=== PATIENT | male | born 1990 | race African-American/Black ===

== ENCOUNTER 2021-06-29 10:35 | Emergency (ER) | payer OTHER, SELFPAY ==
[2021-06-29 10:46] VITALS: BP 148/87; PULSE 95; RESP 18; TEMP 37.1; O2SAT 98; BMI 37.1
[2021-06-29 11:53] LABS: Influenza A PCR NEGATIVE (Negative); Influenza B PCR NEGATIVE (Negative); Resp Syncy Virus RNA Qual PCR NEGATIVE (Negative); SARS COV2 PCR INHOUSE POSITIVE (Negative)
--- NOTE | 2021-06-29 12:05 | ED_ITS ---
HPI - General Adult General Chief complaint: General Medical Stated complaint: fever Time Seen by Provider: 06/29/21 11:03 Source: patient Mode of arrival: ambulatory Limitations: no limitations History of Present Illness HPI narrative: 31-year-old male healthy presents to ED for URI symptoms. Patient not vaccinated. Patient denies any chest pain or shortness of breath. Related Data Allergies Allergy/AdvReac Type Severity Reaction Status Date / Time No Known Allergies Allergy Verified 06/29/21 11:03 Review of Systems Review of Systems: Yes all other systems are reviewed and are negative Constitutional: Constitutional: Reports as per HPI, Reports no additional constitutional complaints, Reports body ache(s), Reports chills, Reports fever(s) and Reports headache(s) Eyes: Eyes: Reports as per HPI and Reports no additional eye complaints ENT: Reports system reviewed and no additional complaints, except as documented, Reports as per HPI and Reports headache(s) Cardiovascular: Cardiovascular: Reports as per HPI and Reports no additional cardiovascular complaints Respiratory: Respiratory: Reports as per HPI and Reports no additional respiratory complaints Gastrointestinal: Gastrointestinal: Reports as per HPI and Reports no additional gastrointestinal complaints Genitourinary: Genitourinary: Reports no additional male genitourinary complaints and Reports as per HPI Musculoskeletal: Musculoskeletal: Reports no additional musculoskeletal complaints and Reports as per HPI Neurologic: Reports system reviewed and no additional complaints, except as documented, Reports as per HPI and Reports headache(s) Psychiatric: Psychiatric: Reports no additional psychiatric complaints and Reports as per HPI PMF Past Medical History Medical History (Updated 06/29/21 @ 12:13 by LANA Boucher) No known health problems Social History Social History Advance Directives: No Advance Directives Information Provided: No Physical Exam Vital Signs: Vital Signs: Last Vital Signs Temp 98.7 F 06/29/21 10:46 Pulse 95 06/29/21 10:46 Resp 18 06/29/21 10:46 BP 148/87 H 06/29/21 10:46 Pulse Ox 98 06/29/21 10:46 BMI result Body Mass Index 37.1 Const: General: cooperative, healthy appearing, comfortable, no acute distress, well developed, alert, awake and Physically active Orientation/consciousness: patient oriented x3 HENMT: Head: Yes normal to inspection, Yes No palpable skull fracture present, Yes normocephalic, Yes atraumatic and No abrasion Eyes: General: appearance normal, both eyes and all related structures Neck: Neck: Yes normal visual inspection, Yes full ROM, Yes no lymphadenopathy, Yes no meningeal signs, Yes trachea midline, Yes supple, No anterior neck swelling and No tender Chest: Chest palpation & inspection: normal inspection of the chest and normal palpation of entire chest wall Resp: Effort & Inspection: normal respiratory effort and able to speak in complete sentences Auscultation: clear to auscultation bilaterally Cardio: Jugular venous distension: no JVD Heart sounds: S1 normal heart sound present and S2 normal heart sound present GI: Inspection: Yes normal to inspection and No abdominal wall ecchymosis Palpation (GI): Soft to palpation, not firm, nontender, no guarding and not rigid : General: No CVA tenderness and Yes no CVA tenderness Back/Spine/Pelvis: Back: no CVA tenderness, No CVA tenderness and No back tenderness Skin: General skin exam: no rashes or lesions noted and elasticity normal Neuro: General: patient oriented x3, gait normal, no meningeal signs and CN's II-XI intact bilaterally Cranial nerves: Yes CN's II-XII intact bilaterally Extrem: General: Yes normal to inspection and Yes full ROM Psych: Appearance: grossly normal, well kempt and not disheveled Course Course Course Narrative: SARs/RSV/COVID swab ordered. Reevaluation(s) Reevaluation #1: Patient came back positive for COVID. Patient educated on self quarantine. Patient informed to return to the ED any chest pain, shortness of breath, weakness Time: 12:11 Medical Decision Making [facility] Narrative Medical decision making narrative: SARs Lab Data Labs: Lab Results 06/29/21 Range/Units 11:02 Influenza Type A (PCR) NEGATIVE (Negative) Influenza Type B (PCR) NEGATIVE (Negative) RSV RNA Qual (PCR) NEGATIVE (Negative) SARS-CoV-2 RNA (RT-PCR) POSITIVE A (Negative) Discharge Plan Discharge Clinical Impression: COVID Patient Disposition: Home, Self-Care Instructions: COVID-19 (Coronavirus Disease 2019) (ED) Additional Instructions: You came back positive for the COVID-19 virus. Recommend 14 days self- isolation. Return To the ED for any chest pain, shortness of breath, weakness, dizziness, or any other concerning symptoms. Please follow-up with primary care provider. Stand Alone Forms: Work/School Release Interventions: ED Discharge Assessment Last Done: 06/29/21 12:17 Discharge Date/Time: 06/29/21 12:22 Print Language: Mohawk
== END 2021-06-29 12:22 | disposition home or self-care (01) ==
PROVIDERS: Emergency Provider Emergency Medicine
DX: U07.1 COVID-19 (principal)
CPT/HCPCS: 0241U; 36415; 99283

== ENCOUNTER 2021-08-28 18:44 | Emergency (ER) | payer OTHER, SELFPAY ==
--- NOTE | ~2021-08-28 | CT_ITS ---
EXAMINATION: CT ABDOMEN AND PELVIS WITH CONTRAST CLINICAL INFORMATION: Abdominal pain COMPARISON: None TECHNIQUE: Multidetector volumetric images were obtained from the superior aspect of the liver through the pubic symphysis following administration 85 mL of Omnipaque 350 intravenous contrast. Sagittal and coronal reformatted images were obtained on the technologist's workstation. Oral contrast: No This CT examination was performed using dose optimization techniques as appropriate, variously including the following: *Automated exposure control *Adjustment of mA and/or kV according to patient size (this includes techniques or standardized protocols for targeted exams where dose is matched to indication/reason for exam; i.e. extremities or head) *Use of iterative reconstruction technique DLP: 777 mGy-cm FINDINGS: LUNG BASES: The visualized lung bases are unremarkable. LIVER, GALLBLADDER, AND BILIARY TREE: The liver is normal in size, shape, and attenuation. Coarse calcifications within the right lobe of liver, likely granulomata. No focal hepatic lesion or biliary ductal dilatation is present. Gallbladder unremarkable. PANCREAS: Unremarkable. SPLEEN: Unremarkable. ADRENAL GLANDS: Unremarkable. KIDNEYS AND URETERS: The kidneys are normal in size, shape, and attenuation. No hydronephrosis, hydroureter, or calculi seen. No perinephric stranding. BLADDER: Unremarkable. GASTROINTESTINAL TRACT: No bowel related abnormalities. Appendectomy. ABDOMINAL WALL: No significant hernia is appreciated. LYMPH NODES: Normal. VASCULAR: Unremarkable. PELVIC VISCERA: Unremarkable. OSSEOUS STRUCTURES: Unremarkable. CT/CT abdomen pelvis w con IMPRESSION: No acute findings within the abdomen or pelvis to explain the patient's symptomatology. Appendectomy. Fleischner guidelines were followed.
[2021-08-28 19:04] VITALS: BP 125/64; PULSE 108; RESP 18; TEMP 37.4; O2SAT 98; BMI 37.1
[2021-08-28 22:08] LABS: MANUAL DIFF FLAG NO
[2021-08-28 22:10] LABS: Appearance Urine CLEAR; Color Urine YELLOW; Glucose Urine UA NEG (NEG); Leukocyte Esterase Urine NEG (NEG); Nitrite Urine NEG (NEG); Specific Gravity - Urine >= 1.030 (1.005-1.025); Urine Blood NEG (NEG); Urine Ketones NEG (NEG); Urine Protein NEG (NEG-TRACE)
[2021-08-28 22:13] LABS: Basophils Percent Auto 0.3 % (0-2); Eosinophils Percent Auto 0.2 % (0-4); Hematocrit 43.8 % (42.0-52.0); Hemoglobin 14.9 g/dl (14.0-18.0); Imm Gran Abs Auto 0.03 X10*3/uL (0.00-0.03); Imm Gran Pct Auto 0.2 % (0.0-0.4); Lymphocytes Percent Auto 7.4 % (20-40); Mean Corpuscular Volume 88.1 fL (80.0-98.0); Mean Platelet Volume 9.7 fL (9.4-12.4); Monocytes Absolute Auto 0.8 X10*3/uL (0.1-1.2); Monocytes Percent Auto 6.5 % (2-11); Neutrophils Absolute Auto 11.1 x10*3/uL (2.0-8.3); Neutrophils Percent Auto 85.4 % (45-73); Platelet Count 355 X10*3/uL (160-400); Red Blood Count 4.97 X10*6/uL (4.60-5.80); Red Cell Distribution Width 13.2 % (11.0-16.0)
[2021-08-28 22:23] LABS: Anion Gap 11 (12-20); Blood Urea Nitrogen 13 mg/dL (9-16); Calcium 9.3 mg/dL (8.4-10.2); Carbon Dioxide 27 mmol/L (22-29); Chloride 103 mmol/L (96-108); Creatinine Clr Calc Pharmacy 141.7; Estimated Glomerular Filt Rate > 60; Glucose Random 93 mg/dL (60-115); Potassium 4.2 mmol/L (3.3-5.1); Sodium 137 mmol/L (135-145)
[2021-08-28 22:25] LABS: COVID-19 Test Negative (Negative)
[2021-08-28 23:07] VITALS: BP 108/64; PULSE 97; RESP 16; TEMP 37.6; O2SAT 98
--- NOTE | 2021-08-28 23:50 | ED.ABDPAIN ---
HPI - Abdominal Pain General Chief Complaint: Abdominal Pain Stated Complaint: abd pain Source: patient Mode of arrival: ambulatory Limitations: no limitations History of Present Illness HPI narrative: 31-year-old male presents with 1 day of abdominal pain nausea and diarrhea. States that he was able to eat and drink without difficulty yesterday, but today was unable to eat because of abdominal pain and nausea. MD elicited complaint: abdominal pain Onset (ago): day(s) (1) Pain Consistency: constant Location: periumbilical and RLQ Severity: moderate Pain scale (0-10): 7 Quality: aching Migration to: no migration Exacerbating factors: eating, vomiting and movement Relieving factors: nothing Associated symptoms: nausea, vomiting, diarrhea and chills Related Data Allergies Allergy/AdvReac Type Severity Reaction Status Date / Time No Known Allergies Allergy Verified 06/29/21 11:03 Review of Systems Review of Systems Constitutional: No Weight loss, No Fever, positive Chills, No Night Sweats, No Fatigue, No Malaise ENT/Mouth: No Hearing loss, No Ear Pain, No Nasal Congestion, No Sinus Pain, No Hoarseness, No sore throat, No Rhinorrhea, No Swallowing Difficulty Eyes: No Eye Pain, No Swelling, No Redness, No Foreign Body, No Discharge, No Vision Changes Cardiovascular: No Chest Pain, No SOB, No Dyspnea on Exertion, No Orthopnea, No Edema, No Palpitations Respiratory: No Cough, No Sputum, No Wheezing, No Smoke Exposure, No Dyspnea Gastrointestinal: Positive Nausea, Positive Vomiting, positive Diarrhea, positive abdominal Pain, No Hematochezia, No Melena Genitourinary: no irregular bleeding, No Dysuria, No Urinary Frequency, No Hematuria, No Urinary Incontinence, No Urgency, No Flank Pain, No Urinary Flow Changes, No Hesitancy Musculoskeletal: No joint pain, No Myalgias, No Joint Swelling Skin: No Skin Lesions, No rash Neuro: No Weakness, No Numbness, No Paresthesias, No Loss of Consciousness, No Dizziness, No Headache Psych: No Anxiety/Panic, No Depression, No SI/HI/AH/VH, No Social Issues Heme/Lymph: No Bruising, No Bleeding,No Lymphadenopathy Endocrine: No Polyuria, No Polydipsia, No Temperature Intolerance Yes all other systems are reviewed and are negative PMFSH Past Medical History Attestation statement: The following information was validated with the patient. Source: old records reviewed Medical History No known health problems Social History Social History Advance Directives: No Physical Exam ED Vital Signs: Vital Signs - 24 hr 08/28/21 19:04 08/28/21 23:07 08/29/21 01:08 Temperature 99.4 F 99.6 F 97.9 F Pulse Rate 108 H 97 96 Respiratory Rate 18 16 16 Blood Pressure 125/64 108/64 117/61 Pulse Oximetry 98 98 98 BMI result Body Mass Index 37.1 Appearance: Alert. Oriented X3. No acute distress. Eyes: Pupils equal, round and reactive to light. EOMI. Sclera nonicteric. ENT: Pharynx normal. Moist mucous membranes. Neck: Normal inspection. Neck supple. CVS: Normal heart rate and rhythm. Pulses normal. Respiratory: No respiratory distress. Breath sounds normal. Abdomen: Soft and right flank right lower quadrant and right suprapubic pain. No rigidity, distention rebound. Skin: Skin warm and dry. Normal skin color. Normal skin turgor. Extremities: No lower extremity edema. Gait well-balanced and well coordinated. Moves all extremities against resistance. Neuro: No motor deficit. No sensory deficit. Cranial nerves 2-12 intact. Course Course Course Narrative: 31-year-old male presents with almost 2 days abdominal pain with nausea vomiting and diarrhea. Patient is status post appendectomy, has diffuse tenderness of the right flank right lower quadrant and right suprapubic on palpation. Negative Correa's, McBurney's, no rigidity or distention noted. Will order CT scan of abdomen and pelvis as patient does have an elevated white count 13, could also be viral syndrome. COVID-19 test is negative. Chemistries are within normal limits. Patient afebrile, vital signs stable and within normal limits. Nontoxic,. 01:45 CT scan of abdomen and pelvis with contrast negative for acute findings requiring emergent intervention. Plan of care is to discharge home measures including Tylenol, Motrin, and for patient to follow-up with primary care provider if symptoms worsen. Patient does verbalize understanding of and agrees to plan of care discharge home. Verbalized understanding of signs and symptoms requiring need for emergent intervention. MDM - Abdominal Pain MDM Narrative Medical decision making narrative: Viral syndrome Differential Diagnosis Differential diagnosis: Likely abdominal pain, calculus of kidney, constipation, diverticulitis, gastroenteritis, pancreatitis and renal colic Medical Records Attestation: I reviewed the patient's medical records. Lab Data Attestation: I reviewed the patient's lab results. Result diagrams: 08/28/21 22:02 08/28/21 22:02 Labs: Lab Results 08/28/21 08/28/21 08/28/21 Range/Units 22:02 22:02 22:02 WBC 13.0 H (4.8-10.8) X10*3/uL RBC 4.97 (4.60-5.80) X10*6/uL Hgb 14.9 (14.0-18.0) g/dl Hct 43.8 (42.0-52.0) % MCV 88.1 (80.0-98.0) fL MCH 30.0 (27.0-33.0) pg MCHC 34.0 (31.0-36.0) g/dl RDW 13.2 (11.0-16.0) % Plt Count 355 (160-400) X10*3/uL MPV 9.7 (9.4-12.4) fL Immature Gran % (Auto) 0.2 (0.0-0.4) % Neut % (Auto) 85.4 H (45-73) % Lymph % (Auto) 7.4 L (20-40) % [place] % (Auto) 6.5 (2-11) % Eos % (Auto) 0.2 (0-4) % Baso % (Auto) 0.3 (0-2) % Lymph # (Auto) 1.0 L (1.2-4.9) X10*3/uL [place] # (Auto) 0.8 (0.1-1.2) X10*3/uL Eos # (Auto) 0.0 (0.0-0.4) X10*3/uL Baso # (Auto) 0.0 (0.0-0.2) X10*3/uL Abs Immat Gran (auto) 0.03 (0.00-0.03) X10*3/uL Absolute Neuts (auto) 11.1 H (2.0-8.3) x10*3/uL Absolute Nucleated RBC 0.000 (0.0-0.012) X10*3/uL Nucleated RBC % (auto) 0.0 (0.0-0.2) /100WBC Sodium 137 (135-145) mmol/L Potassium 4.2 (3.3-5.1) mmol/L Chloride 103 (96-108) mmol/L Carbon Dioxide 27 (22-29) mmol/L Anion Gap 11 L (12-20) BUN 13 (9-16) mg/dL Creatinine 0.87 (0.5-1.4) mg/dL Estim Creat Clear Calc 141.7 Estimated GFR > 60 Random Glucose 93 (60-115) mg/dL Calcium 9.3 (8.4-10.2) mg/dL Total Bilirubin 0.7 (0.0-1.0) mg/dL Direct Bilirubin 0.3 (0.0-0.5) mg/dL AST 23 (5-37) U/L ALT 32 (0-40) U/L Alkaline Phosphatase 57 (39-117) U/L Total Protein 7.3 (6.5-8.0) g/dL Albumin 4.6 (3.5-5.0) g/dL Lipase 19 (8-78) U/L Urine Color Urine Appearance Urine pH (5.0-8.0) Ur Specific [place] (1.005-1.025) Urine Protein (NEG-TRACE) MG/DL Urine Glucose (UA) (NEG) MG/DL Urine Ketones (NEG) MG/DL Urine Blood (NEG) Urine Nitrite (NEG) Ur Leukocyte Esterase (NEG) COVID-19 ([facility]) Negative (Negative) COVID-19 Clin Com See Note 08/28/21 Range/Units 22:02 WBC (4.8-10.8) X10*3/uL RBC (4.60-5.80) X10*6/uL Hgb (14.0-18.0) g/dl Hct (42.0-52.0) % MCV (80.0-98.0) fL MCH (27.0-33.0) pg MCHC (31.0-36.0) g/dl RDW (11.0-16.0) % Plt Count (160-400) X10*3/uL MPV (9.4-12.4) fL Immature Gran % (Auto) (0.0-0.4) % Neut % (Auto) (45-73) % Lymph % (Auto) (20-40) % [place] % (Auto) (2-11) % Eos % (Auto) (0-4) % Baso % (Auto) (0-2) % Lymph # (Auto) (1.2-4.9) X10*3/uL [place] # (Auto) (0.1-1.2) X10*3/uL Eos # (Auto) (0.0-0.4) X10*3/uL Baso # (Auto) (0.0-0.2) X10*3/uL Abs Immat Gran (auto) (0.00-0.03) X10*3/uL Absolute Neuts (auto) (2.0-8.3) x10*3/uL Absolute Nucleated RBC (0.0-0.012) X10*3/uL Nucleated RBC % (auto) (0.0-0.2) /100WBC Sodium (135-145) mmol/L Potassium (3.3-5.1) mmol/L Chloride (96-108) mmol/L Carbon Dioxide (22-29) mmol/L Anion Gap (12-20) BUN (9-16) mg/dL Creatinine (0.5-1.4) mg/dL Estim Creat Clear Calc Estimated GFR Random Glucose (60-115) mg/dL Calcium (8.4-10.2) mg/dL Total Bilirubin (0.0-1.0) mg/dL Direct Bilirubin (0.0-0.5) mg/dL AST (5-37) U/L ALT (0-40) U/L Alkaline Phosphatase (39-117) U/L Total Protein (6.5-8.0) g/dL Albumin (3.5-5.0) g/dL Lipase (8-78) U/L Urine Color YELLOW Urine Appearance CLEAR Urine pH 6.0 (5.0-8.0) Ur Specific [place] >= 1.030 H (1.005-1.025) Urine Protein NEG (NEG-TRACE) MG/DL Urine Glucose (UA) NEG (NEG) MG/DL Urine Ketones NEG (NEG) MG/DL Urine Blood NEG (NEG) Urine Nitrite NEG (NEG) Ur Leukocyte Esterase NEG (NEG) COVID-19 ([facility]) (Negative) COVID-19 Clin Com Imaging Data CT abdomen pelvis: Attestation: I personally reviewed and interpreted this imaging study as follows: Radiologist's impression: FINDINGS: LUNG BASES: The visualized lung bases are unremarkable.? LIVER, GALLBLADDER, AND BILIARY TREE: The liver is normal in size, shape, and attenuation. Coarse calcifications within the right lobe of liver, likely granulomata. No focal hepatic lesion or biliary ductal dilatation is present. Gallbladder unremarkable.? PANCREAS: Unremarkable.? SPLEEN: Unremarkable.? ADRENAL GLANDS: Unremarkable.? KIDNEYS AND URETERS: The kidneys are normal in size, shape, and attenuation. No hydronephrosis, hydroureter, or calculi seen. No perinephric stranding. ? BLADDER: Unremarkable.? GASTROINTESTINAL TRACT: No bowel related abnormalities. Appendectomy.? ABDOMINAL WALL: No significant hernia is appreciated.? LYMPH NODES: Normal. VASCULAR: Unremarkable. PELVIC VISCERA: Unremarkable.? OSSEOUS STRUCTURES: Unremarkable.? CT/CT abdomen pelvis w con IMPRESSION: No acute findings within the abdomen or pelvis to explain the patient's symptomatology. Appendectomy.? ? Fleischner guidelines were followed. Discharge Plan Discharge Clinical Impression: Acute viral syndrome Abdominal pain Qualifiers: Abdominal location: generalized Qualified Code(s): R10.84 - Generalized abdominal pain Patient Disposition: Home, Self-Care Instructions: Abdominal Pain (ED), Viral Syndrome (ED) Additional Instructions: You were evaluated for abdominal pain, nausea vomiting and diarrhea. CT scan of abdomen pelvis is negative for acute findings requiring emergent intervention. Please alternate Tylenol 650 mg every 6 hours and Motrin 600 mg every 6 hours as needed for pain management. Write down what time you take these medications prevented full dental overdose. Drink plenty of fluids. Follow-up with primary care physicians week. Thank you for choosing this emergency department for evaluation. Please follow-up with primary care physician as needed. Return to the emergency department for any new, concerning, or worsening symptoms. Stand Alone Forms: Work/School Release
[2021-08-29 00:03] LABS: Alanine Aminotransferase 32 U/L (0-40); Albumin Level 4.6 g/dL (3.5-5.0); Alkaline Phosphatase 57 U/L (39-117); Aspartate Amino Transferase 23 U/L (5-37); Bilirubin Direct 0.3 mg/dL (0.0-0.5); Bilirubin Total 0.7 mg/dL (0.0-1.0); Lipase 19 U/L (8-78); Total Protein 7.3 g/dL (6.5-8.0)
[2021-08-29] MEDS: 0.9 % Sodium Chloride 1,000 ML 999 ML IVCONT (00:22)
[2021-08-29] MEDS: iohexoL 350 MG/ML 100 ML INFUS..BTL 85 ML IV (01:05)
[2021-08-29 01:08] VITALS: BP 117/61; PULSE 96; RESP 16; TEMP 36.6; O2SAT 98
[2021-08-29 01:51] VITALS: BP 100/54; PULSE 83; RESP 16; TEMP 37.1
== END 2021-08-29 02:05 | disposition home or self-care (01) ==
PROVIDERS: Emergency Provider Internal Medicine
DX: R10.84 Generalized abdominal pain (principal); Z20.822 Contact with and (suspected) exposure to COVID-19; R11.2 Nausea with vomiting, unspecified; R19.7 Diarrhea, unspecified
CPT/HCPCS: 74177; 80048; 80076; 81003; 83690; 85025; 87635; 96360; 99284; Q9967

== ENCOUNTER 2022-10-01 09:39 | Outpatient (REF) | payer OTHER, SELFPAY ==
--- NOTE | ~2022-10-01 | XR_ITS ---
EXAMINATION: XR TIBIA AND FIBULA, LEFT CLINICAL INFORMATION: Left leg pain status post crush injury. COMPARISON: None available. TECHNIQUE: AP and lateral views of the left tibia and fibula were obtained. An indicator arrow points to the mid aspect of the anterior tibia. FINDINGS: The bones and soft tissues are normal. No fracture. No osseous lesions. XR/XR tibia fibula LT 2V IMPRESSION: Unremarkable left tibia and fibula.
== END 2022-10-01 09:40 | disposition home or self-care (01) ==
LOC: HO.XRAY 09:39
PROVIDERS: PCP Nurse Practitioner Primary Care; Visit Provider Family Medicine
DX: S89.92XA Unspecified injury of left lower leg, initial encounter (principal)
CPT/HCPCS: 73590

== ENCOUNTER 2024-04-29 08:32 | Outpatient (REF) | payer OTHER, SELFPAY ==
[2024-04-29 08:56] LABS: MANUAL DIFF FLAG NO
[2024-04-29 09:18] LABS: Basophils Absolute Auto 0.1 X10*3/uL (0.0-0.2); Basophils Percent Auto 0.8 % (0-2); Eosinophils Absolute Auto 0.1 X10*3/uL (0.0-0.4); Eosinophils Percent Auto 1.2 % (0-4); Hematocrit 43.2 % (42.0-52.0); Hemoglobin 14.6 g/dl (14.0-18.0); Imm Gran Abs Auto 0.04 X10*3/uL (0.00-0.03); Imm Gran Pct Auto 0.5 % (0.0-0.4); Lymphocytes Percent Auto 25.9 % (20-40); Mean Corpuscular HGB Conc 33.8 g/dl (31.0-36.0); Mean Corpuscular Hemoglobin 29.9 pg (27.0-33.0); Mean Corpuscular Volume 88.5 fL (80.0-98.0); Mean Platelet Volume 9.9 fL (9.4-12.4); Monocytes Absolute Auto 0.6 X10*3/uL (0.1-1.2); Monocytes Percent Auto 7.4 % (2-11); Neutrophils Absolute Auto 4.9 x10*3/uL (2.0-8.3); Neutrophils Percent Auto 64.2 % (45-73); Platelet Count 373 X10*3/uL (160-400); Red Blood Count 4.88 X10*6/uL (4.60-5.80); Red Cell Distribution Width 12.9 % (11.0-16.0); White Blood Count 7.6 X10*3/uL (4.8-10.8)
[2024-04-29 09:27] LABS: Estimated Average Glucose 103 mg/dL; Hemoglobin A1C 122.0275 umol/L; Hemoglobin A1c % 5.2 % (<6.0); Total Hemoglobin (HGBA1C) 3714.7549 umol/L
[2024-04-29 09:52] LABS: Alanine Aminotransferase 27 U/L (0-40); Albumin Level 4.6 g/dL (3.5-5.0); Alkaline Phosphatase 52 U/L (39-117); Anion Gap 8 (12-20); Aspartate Amino Transferase 22 U/L (5-37); Bilirubin Total 0.8 mg/dL (0.0-1.0); Blood Urea Nitrogen 10 mg/dL (9-16); Calcium 9.2 mg/dL (8.4-10.2); Carbon Dioxide 29 mmol/L (22-29); Chloride 107 mmol/L (96-108); Cholesterol 156 mg/dL (<200); Estimated Glomerular Filt Rate > 60; Glucose Random 98 mg/dL (60-115); HDL Cholesterol 33 mg/dL (>40); LDL Cholesterol Calculated 102 mg/dL (<100); Potassium 4.2 mmol/L (3.3-5.1); Sodium 140 mmol/L (135-145); Total Protein 7.1 g/dL (6.5-8.0); Triglycerides 105 mg/dL (<150)
[2024-04-29 10:16] LABS: HBS Num1 10.45 mIU/mL (0-7.99); HBc Num1 0.04 S/CO (0.00-0.79); HIV AB/AG Nonreactive (Nonreactive); HIV Num 1 0.71 S/CO (0.00-0.99); Hepatitis A Antibody IgM 0.23 Index (0-0.79); Hepatitis B Core Antibody Nonreactive (Nonreactive); Hepatitis B Surface Antigen Negative (Negative); ~HepC Num1 0.09 S/CO (0.00-0.79); ~Hepatitis A Antibody IgM Nonreactive (Nonreactive); ~Hepatitis C Antibody Nonreactive (Nonreactive)
[2024-04-29 10:17] LABS: Vitamin B12 608 pg/mL (200-900)
[2024-04-29 11:56] LABS: HBS Num2 10.59 mIU/mL (0-7.99); HBS Num3 10.02 mIU/mL (0-7.99)
[2024-04-29 11:57] LABS: ~Hepatitis B Surface Antibody GRAYZONE (Nonreactive)
[2024-05-01 15:23] LABS: RPR Rapid Plasma Reagin NON-REACTIVE (NON-REACTIVE)
== END 2024-04-29 08:33 | disposition home or self-care (01) ==
LOC: HO.LAB 08:32
PROVIDERS: PCP Nurse Practitioner Primary Care; Visit Provider Nurse Practitioner Primary Care
DX: R53.83 Other fatigue (principal); Z13.220 Encounter for screening for lipoid disorders; Z11.3 Encounter for screening for infections with a predominantly sexual mode of transmission; Z13.1 Encounter for screening for diabetes mellitus
CPT/HCPCS: 36415; 80053; 80061; 82607; 83036; 85025; 86592; 86704; 86706; 86709; 86803; 87340; 87389

== ENCOUNTER 2025-05-17 15:08 | Emergency (ER) | payer OTHER, SELFPAY ==
--- NOTE | ~2025-05-17 | CT_ITS ---
CLINICAL HISTORY: trauma, pain CT head without contrast Comparison: None provided Findings: BRAIN: No acute infarct, hemorrhage, or mass effect. No abnormal atrophy. CSF SPACES: No hydrocephalus or effacement of basal cisterns. SKULL: No calvarial fracture. SINUSES: Mild left maxillary sinus mucosal thickening. ORBITS: Limited views are unremarkable. OTHER: Negative. IMPRESSION: 1. No acute intracranial findings. This document has been electronically signed by: Radhika العلي MD on 05/17/2025 18:57:42
--- NOTE | ~2025-05-17 | CT_ITS ---
CLINICAL HISTORY: trauma, pain CT maxillofacial without contrast. COMPARISON: None provided. FINDINGS: Bony orbits appear intact. Globes appear intact bilaterally. No postseptal or retrobulbar hematoma. Nasal bones appear intact. Nasal septum is mildly deviated to the right. Mild mucosal thickening present within the left maxillary sinus. Maxilla and nasal spine of the maxilla appear intact Zygomatic processes and pterygoid plates appear intact. Temporomandibular joints are maintained. Mandible appears intact. Visualized intracranial structures are unremarkable. Visualized portions of the skull base appear intact. IMPRESSION: 1. No evidence of acute facial injury. This document has been electronically signed by: Ja Stephens MD on 05/17/2025 18:20:20
--- NOTE | ~2025-05-17 | CT_ITS ---
CLINICAL HISTORY: trauma, pain CT cervical spine without contrast. COMPARISON: None provided. FINDINGS: Straightening of the normal cervical lordosis, likely positional. Vertebral body heights are maintained. No evidence of acute vertebral body injury. No significant degenerative changes. Skull base and intracranial structures appear normal. The visualized paravertebral soft tissues appear unremarkable. IMPRESSION: 1. No evidence of acute injury to the cervical spine. This document has been electronically signed by: Ja Stephens MD on 05/17/2025 18:19:10
[2025-05-17 16:08] VITALS: BP 136/75; PULSE 74; RESP 18; TEMP 36.9; O2SAT 98; BMI 37.1
--- NOTE | 2025-05-17 16:11 | ED_ITS ---
HPI - General Adult General Chief complaint: Head Injury Stated complaint: head inj, lac to nose Time Seen by Provider: 05/17/25 20:50 Source: patient, RN notes reviewed and old records reviewed Mode of arrival: ambulatory Limitations: no limitations History of Present Illness ED Provider: Ton PANDEY narrative: 35-year-old male presents for evaluation of a facial injury. 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 It struck him on the nose He denies any loss of consciousness His last tetanus was about 7 years ago Denies any other injuries. He is not anticoagulated Related Data Allergies Allergy/AdvReac Type Severity Reaction Status Date / Time aspirin Allergy Anaphylaxis Verified 05/17/25 16:10 Review of Systems Constitutional: Constitutional: Denies body ache(s), Denies chills, Denies fever(s) and Reports headache(s) Eyes: Eyes: Denies blurry vision ENT: Reports headache(s), Reports epistaxis, Reports nasal trauma, Denies neck pain, Reports nose pain, Denies odynophagia, Denies disequilibrium and Denies post nasal drip Cardiovascular: Cardiovascular: Denies chest pain and Denies dyspnea on exertion Respiratory: Respiratory: Denies cough and Denies dyspnea on exertion Gastrointestinal: Gastrointestinal: Denies abdominal pain and Denies odynophagia Musculoskeletal: Musculoskeletal: Denies neck pain Neurologic: Reports headache(s) and Denies disequilibrium PMFSH Past Medical History Medical History No known health problems Social History Social History Smoked in Last 30 Days: No Use of substances other than those prescribed or required for medical reasons: No Advance Directives: No Advance Directives Information Provided: Yes Do you have a plan to hurt others: No Plan Physical Exam ED Vital Signs: Vital Signs - 24 hr 05/17/25 16:08 05/17/25 20:58 Temperature 98.4 F Pulse Rate 74 84 Respiratory Rate 18 16 Blood Pressure 136/75 127/80 Pulse Oximetry 98 95 Oxygen Delivery Method Room Air Room Air BMI result Body Mass Index 37.1 Const General: healthy appearing, comfortable, no acute distress, alert and awake Nutritional Appearance: well nourished Orientation/consciousness: patient oriented x3 HENMT Other: The patient has a 2 cm, linear, superficial, partial-thickness laceration to the right side of the nose, inferior to the nasal bridge. This is well approximated, I can not pull the wound edges apart. There was no evidence of septal hematoma. No laxity with manipulation of the nasal bones. No orbital tenderness or crepitus Eyes Eyelids: Yes eyelids normal Conjunctivae: conjunctivae normal Sclerae: sclerae normal Corneas: corneas normal Pupils: Equal, round and reactive pupils present Neck Neck: Yes full ROM Resp Effort & Inspection: normal respiratory effort, able to speak in complete sentences and not labored Skin General skin exam: elasticity normal Neuro General: patient oriented x3 Cranial nerves: Yes CN's II-XII intact bilaterally, Yes Equal, round and reactive pupils present and Yes Bilaterally intact EOM present Cognition (Neuro): normal cognition Extrem Other: Moving all extremities well without any obvious deformities Course Course Course Narrative: Rapid medical examination performed in triage by Lakia Crespo PA-C: Patient is a 35 year old assigned male at presenting to the emergency department with a nose laceration after being hit in the face with a falling can of paint primer. Detailed physical exam and review of systems are deferred to the dividend deposit entry clerk. Imaging ordered. Patient placed back in the waiting room pending room availability and results. Medications Administered Discontinued Medications Generic Name Dose Route Start Last Admin Trade Name Freq PRN Reason Stop Dose Admin Acetaminophen 975 mg 05/17/25 20:50 05/17/25 20:57 Acetaminophen 325 Mg Tablet PO 05/17/25 20:51 975 mg ONCE ONE Administration Medical Decision Making Medical Decision Making [facility] Narrative: 35-year-old male presents for evaluation of a facial injury. A can of primary fell on his face, weighing approximately 20 lb. He has a partial-thickness laceration in his well approximated and can not be pulled apart. He is not actively bleeding. There was no indication for closure at this time. His tetanus will be updated. He had a CT scan of the brain, facial bones and cervical spine ordered in triage which did not show any evidence of significant traumatic injury. No nasal fracture, the patient is neurologic exam is benign. He is stable for discharge with symptomatic care only. Differential Diagnosis Differential Diagnoses: The differential diagnosis associated with the presentation includes Facial contusion Concussion Nasal fracture Laceration Abrasion Intracranial hemorrhage Cervical strain Cervical fracture Radiology Impression Discussion of test interpretation with radiology: I have reviewed the radiologist's reading. Radiologist Impression: FINDINGS: Bony orbits appear intact. Globes appear intact bilaterally. No postseptal or retrobulbar hematoma. Nasal bones appear intact. Nasal septum is mildly deviated to the right. Mild mucosal thickening present within the left maxillary sinus. Maxilla and nasal spine of the maxilla appear intact Zygomatic processes and pterygoid plates appear intact. Temporomandibular joints are maintained. Mandible appears intact. Visualized intracranial structures are unremarkable. Visualized portions of the skull base appear intact. IMPRESSION: 1. No evidence of acute facial injury. This document has been electronically signed by: Ja Stephens MD on 05/17/2025 18:20:20 FINDINGS: Straightening of the normal cervical lordosis, likely positional. Vertebral body heights are maintained. No evidence of acute vertebral body injury. No significant degenerative changes. Skull base and intracranial structures appear normal. The visualized paravertebral soft tissues appear unremarkable. IMPRESSION: 1. No evidence of acute injury to the cervical spine. This document has been electronically signed by: Ja Stephens MD on 05/17/2025 18:19:10 Findings: BRAIN: No acute infarct, hemorrhage, or mass effect. No abnormal atrophy. CSF SPACES: No hydrocephalus or effacement of basal cisterns. SKULL: No calvarial fracture. SINUSES: Mild left maxillary sinus mucosal thickening. ORBITS: Limited views are unremarkable. OTHER: Negative. IMPRESSION: 1. No acute intracranial findings. This document has been electronically signed by: Radhika العلي MD on 05/17/2025 18:57:42 Discharge Plan Discharge Clinical Impression: Contusion of face Patient Disposition: Home, Self-Care Instructions: Facial Contusion (ED) Additional Instructions: Your CT scans did not show any evidence of significant injury. This includes the brain CT, facial CT shows no nasal fracture and your cervical spine CT did not show any evidence of injury I recommend applying ice to the bridge of the nose every 2 hours until you go to sleep tonight. Use ibuprofen/Tylenol for pain pain Your tetanus was updated today Stand Alone Forms: Work/School Release Print Language: Korean
--- OUTSIDE RECORDS SUMMARY | 2025-05-17 18:05 | XMS_ITS | Clinical Summary ---
Author Organization [facility] Address [address] [place] [address] [place] [phone] Phone Care Team Providers Care Roll Forming Machine Operator Name Role Phone Pcp, Not Required Primary Care Provider Unavaila ble Allergies Active Allergy Reactions Criticality Noted Date Comments Aspirin 08/22/2017 Medications No known medications Immunizations Immunization Administration Dates Next Due Tdap 08/22/2017 Social History Tobacco Use Types Packs/Day Years Used Date Smoking Tobacco: Never Assessed Sex and Gender Information Value Date Recorded Sex Assigned at Male 08/22/2017 10:14 AM EST Legal Sex Male 9:06 AM EST Gender Identity Male 08/22/2017 10:14 AM EST Sexual Orientation Straight 08/22/2017 10 :14 AM EST Last Filed Vital Signs Vital Sign Reading Time Taken Comments Blood Pressure 124/80 08/22/2017 12:33 PM EST Pulse 68 08/22/2017 12:33 PM EST Temperature 36.7 C (98 F) 08/22/2017 12:33 PM EST Respiratory Rate 20 08/22/2017 10:12 AM EST Oxygen Saturation 100% 08/22/2017 12:33 PM EST Inhaled Oxygen Concentration - - Weight 86.2 kg (190 lb) 08/22/2017 10:12 AM EST Height 167.6 cm (5' 6 ) 08/22/2017 10:12 AM EST Body Mass Index 30.67 08/22/2017 10:12 AM EST Plan of Treatment Not on file Medical Devices Not on file Insurance [employer] [place] [address] [place] [address] Care Teams Roll Forming Machine Operator Relationship Specialty Start Date End Date Pcp, Not Required [address] [place] [id number] PCP - General 08/22/17 Additional Source Comments The information contained in this document represents components of the legal health record. It is not the complete legal health record.[facility]
--- OUTSIDE RECORDS SUMMARY | 2025-05-17 18:05 | XMS_ITS | Clinical Summary ---
Author Organization [facility] Address [address] [place] [address] Care Team Providers Care Ship Erector Name Role Phone Unavailable Primary Care Provider Unavailabl e Allergies Active Allergy Reactions Criticality Noted Date Comments Aspirin Swelling Medium 11/02/2021 Medications diclofenac (VOLTAREN) 75 mg EC tablet Take 1 tablet (75 mg total) by mouth 2 (two) times daily. 30 tablet 11/02/2021 Active Family History Medical History Relation Name Comments No Known Problems Father No Known Problems Mother Relation Name Status Comments Father Alive Mother Alive Social History Tobacco Use Types Packs/Day Years Used Date Smoking Tobacco: Every Day Cigarettes Comments:8-10 cigs/day Alcohol Use Standard Drinks/Week Comments Not Currently 0 (1 standard drink = 0.6 oz pur e alcohol) Sex and Gender Information Value Date Recorded Sex Assigned at Not on file Legal Sex Male 11:18 AM EDT Gender Identity Not on file Sexual Orientation Not on file Last Filed Vital Signs Vital Sign Reading Time Taken Comments Blood Pressure 122/77 11/02/2021 11:29 AM EDT Pulse 92 11/02/2021 11:29 AM EDT Temperature 36.8 C (98.2 F) 11/02/2021 11:29 AM EDT Respiratory Rate 20 11/02/2021 11:29 AM EDT Oxygen Saturation 98% 11/02/2021 11:29 AM EDT Inhaled Oxygen Concentration - - Weight 104.3 kg (230 lb) 11/02/2021 11:29 AM EDT Height 167.6 cm (5' 6 ) 11/02/2021 11:29 AM EDT Body Mass Index 37.12 11/02/2021 11:29 AM EDT Plan of Treatment Health Maintenance Due Date Last Done Comments HIV screening 01/03/2005 Hepatitis C screening 01/03/2010 Tetanus adult (Td q 10,TDAP once) 2012 Influenza vaccine 02/12/2025 Covid-19 vaccine series ( - 2024-26 season) 2025 RSV Immunization (1 - 1-dose 75+ series) 01/03/2067 Meningococcal B Vaccine Aged Out No l onger eligible based on patient's age to complete this topic Meningococcal Vaccine Aged Out No maryam myrtle eligible based on patient's age to complete this topic Pneumococcal Vaccine (2 - 49 years) Aged Out No longer eligible based on patient's age to complete this topic Insurance [employer] on file [employer] on file [employer]
--- OUTSIDE RECORDS SUMMARY | 2025-05-17 18:05 | XMS_ITS ---
Author Name [facility] Organization Unknown Encounters Encounter Type Encounter Reason Primary Diagnosis Location Date Emergency Pain in limb [facility] 11/02/2021 Care Team Organization Name Specialty Phone Email Start Date End Da te [facility] 11/02/2021
--- OUTSIDE RECORDS SUMMARY | 2025-05-17 18:05 | XMS_ITS | Clinical Summary ---
Author Organization [facility] Address [address] [place] [address] Care Team Providers Care Skiver Counter Name Role Phone Trudy Chavez MD Primary Care Provider [phone] Social History Tobacco Use Types Packs/Day Years Used Date Smoking Tobacco: Never Assessed Sex and Gender Information Value Date Recorded Sex Assigned at Not on file Legal Sex Male 6:15 PM EST Gender Identity Not on file Sexual Orientation Not on file Plan of Treatment Health Maintenance Due Date Last Done Comments DTaP,Tdap,and Td Vaccines (1 - Tdap) 01/03/2011 Hepatitis B Vaccines (1 of 3 - 19+ 3-dose series) 01/03/2011 HPV Vaccines (1 - 3-dose SCD M series) 01/03/2019 HIV Screening 03/09/2024 Hepatitis C Screening 03/09/2024 Social Influencers of Health Screening 03/09/2024 Depression Screening 07/15/2024 COVID-19 Vaccine (1 - 2023-2 5 season) 2025 Influenza Vaccine (#1) 2025 RSV Immunization Adult Patie nts (1 - 1-dose 75+ series) 01/03/2067 HIB Vaccines Aged Out No longer eligi ble based on patient's age to complete this topic Hepatitis A Vaccines Aged Out No long er eligible based on patient's age to complete this topic IPV Vaccines Aged Out No longer eligi ble based on patient's age to complete this topic MMR Vaccines Aged Out No longer eligi ble based on patient's age to complete this topic Meningococcal ACWY Vaccine Aged Out N o longer eligible based on patient's age to complete this topic Meningococcal B Vaccine Aged Out No l onger eligible based on patient's age to complete this topic Pneumococcal Vaccine: Pediat rics (0 to 5 Years) and At-Risk Patients (6 to 49 Years) Aged Out No longer eligible b ased on patient's age to complete this topic RSV Immunization Patients Un cassia 20 months Aged Out No longer eligible b ased on patient's age to complete this topic Varicella Vaccines Aged Out No longer eligible based on patient's age to complete this topic Care Teams Skiver Counter Relationship Specialty Start Date End Date Trudy Chavez MD [facility] [place], [place] PCP - General Internal Medicine 02/05/17
--- OUTSIDE RECORDS SUMMARY | 2025-05-17 18:05 | XMS_ITS | Clinical Summary ---
Author Organization [employer] Address [address] [place] [address] Care Team Providers Care Buffet Server Name Role Phone Tyra Deshpande SCOTT Primary Care Provider [phone] Allergies Active Allergy Reactions Criticality Noted Date Comments Aspirin Anaphylaxis,Swelling High 02/19/2017 Nsaids Anaphylaxis High 11/01/2021 Medications * This document contains information received from the source organization and may not represent a complete record from that organization. benzonatate (Tessalon) 200 MG capsule Take 200 mg by mouth if needed in the morning, at noon, and at bedtime for cough. 4 Active EPINEPHrine (EpiPen 2-Leonardo) 0.3 MG/0.3ML injection syringe Inject 0.3 mL into the shoulder, thigh, or buttocks. 2 Active albuterol 108 (90 Base) MCG/ACT inhaler 2 puffs every 4 (four) hours if needed for shortness of breath or wheezing. 4 Active hydrOXYzine pamoate (Vistaril) 25 MG capsuleIndicati ons:Anxiety Take 1-2 capsule(s) at bedtime as needed for anxiety or difficulty sleeping 60 capsule 1 4 Active Dextromethorpha n-guaiFENesin (Mucinex DM) 30-600 MG tablet sustained-relea se 12 hour Use 1 tab TID 28 tablet 4 Active propranolol LA (Inderal LA) 80 MG 24 hr capsule Take 1 capsule (80 mg) by mouth Once per day. Do not crush, chew, or split. 30 capsule 1 5 06/15/20 25 Active SUMAtriptan (Imitrex) 50 MG tablet Take 1 tablet (50 mg) by mouth 1 (one) time if needed for migraine for up to 1 dose. May repeat dose once in 2 hours if no relief. Do not exceed 2 doses in 24 hours. 9 tablet Active Active Problems Problem Noted Date Diagnosed Date Allergic to aspirin 06/17/2024 Anxiety 06/17/2024 Left leg injury, initial encounter 10/01/2022 Assessment & Plan (10/01/2022 9:15 AM EDT): Approximately 11 days ago. Given localized tenderness will check x-ray to rule out tibia fractor. He declines pain medication. No work until fracture worked out. Encounters Date Type Department Care Team Description 04/16/2025 3:15 PM EDT Office Visit [facility] [address] [place] [phone] Marianne Reyez NP Migraine without status migrainosus, not intractable, unspecified migraine type (Primary Dx) 04/16/2025 Travel 04/16/2025 Telephone [facility] [address] [place] [phone] Tyra Deshpande, ANP Nurse Triage from Last 3 Months Immunizations Immunization Administration Dates Next Due Hep B, adult 06/22/2024 TD (adult), 2 Lf tetanus tox oid, preservative free, adsorbed 10/13/2016 Tdap 08/22/2017 Social History Tobacco Use Types Packs/Day Years Used Date Smoking Tobacco: Former Cigarettes Q uit: 09/12/2022 Smokeless Tobacco: Never Tobacco Cessation:Counseling Given: Not Answered Alcohol Answer Date Recorded How often do you have a drink containing alcohol ? 0 04/20/2024 Average Number of Drinks Not on file 024 Frequency of Binge Drinking Not on file 01/2024 Depression Answer Date Recorded Patient Health Questionnaire-9 Score 13 04/20/2024 Patient Health Questionnaire-9 Score 13 04/20/2024 Last PHQ-9: Questionnaire Data Not on file 1 Housing Stability Answer Date Recorded What is your housing situation today? I have bart lanza 04/20/[address] you li ve. Do you have problems with any of the following? None of the above 04/20/2024 Food Insecurity Answer Date Recorded Within the past 12 months, y ou worried that your food would run out before you got money to buy more: Never True 04/20/2024 Within the past 12 months,th e food you bought just didn't last and you didn't have enough money to get more: Never True 01/2024 Transportation Answer Date Recorded In the past 12 months, has l ack of transportation kept you from medical appts, meetings, work or from getting things needed for daily living? No 04/20/2024 Utilities Answer Date Recorded In the past 12 months, has t he electric, gas, oil or water company threatened to shut off services in your home? I am not sure 04/20/2024 Depression Answer Date Recorded Patient Health Questionnaire-2 Score 1 04/20/2024 Internet Access Answer Date Recorded Internet Access Q1 Yes 04/20/2024 Internet Access Q2 Not on file 04/20/2024 Sex and Gender Information Value Date Recorded Sex Assigned at Male 05/14/2022 10:40 AM EDT Legal Sex Male 10:40 AM EDT Gender Identity Male 05/14/2022 10:40 AM EDT Sexual Orientation Straight 05/14/2022 10 :40 AM EDT Last Filed Vital Signs Vital Sign Reading Time Taken Comments Blood Pressure 130/78 04/16/2025 3:49 PM EDT Pulse 86 04/16/2025 3:49 PM EDT Temperature 36.9 C (98.4 F) 04/16/2025 3:49 PM EDT Respiratory Rate 20 04/16/2025 3:49 PM EDT Oxygen Saturation 98% 04/16/2025 3:49 PM EDT Inhaled Oxygen Concentration - - Weight 107 kg (235 lb 9.6 oz) 04/16/2025 3:49 PM EDT Height 167.6 cm (5' 6 ) 04/16/2025 3:49 PM EDT Body Mass Index 38.03 04/16/2025 3:49 PM EDT Plan of Treatment Upcoming Encounters Date Type Department Care Team (Late st Contact Info) Description 06/04/2025 2:30 PM EST Office Visit [facility] [address] [place] [address] Tyra Deshpande, SCOTT [address], [place] [phone] Health Maintenance Due Date Last Done Comments Disability Screening 1992 Alcohol/Substance Use Screening 2004 Family Planning (PISQ) 01/03/2007 HPV Vaccines (1 - Male 3-dos e series) 01/03/2007 Hepatitis B Vaccines (2 of 3 - 19+ 3-dose series) 07/20/2024 06/22/2024 Depression Monitoring 10/19/2024 04/20/2024 , 04/20/2024 COVID-19 Vaccine (1 - 2023-2 5 season) 2025 Influenza Vaccine (#1) 2025 SDOH Screening 04/20/2025 04/20/2024 Tobacco Screening 04/16/2026 04/16/2025 DTaP/Tdap/Td Vaccines (2 - T d or Tdap) 08/22/2027 08/22/2017, 10/13/2016 Zoster Vaccines (1 of 2) 01/03/2042 RSV Patients and Patients Aged 60 years or older (1 - 1-dose 75+ series) 01/03/2067 HIV Screening Completed 04/29/2024 Hepatitis C Screening Completed 04/29/2024 HIB Vaccines Aged Out No longer eligi [...] age to complete this topic Pneumococcal Vaccine: Pediatrics (0 to 5 Years) and At-Risk Patients (6 to 49) Years Aged Out No longer eligible b ased on patient's age to complete this topic RSV under 20 months Aged Out No longe r eligible based on patient's age to complete this topic Rotavirus Vaccines Aged Out No longer eligible based on patient's age to complete this topic Procedures Procedure Name Priority Date/Time Associated Diagnosis Comments HEPATITIS PANEL, GENERAL Routine 04/29/2024 8:55 AM EDT Routine screening for STI (sexually transmitted infection) HIV 1/2 ANTIGEN/ANTIBODY, FOURTH GENERATION W/RFL Routine 04/29/2024 8:55 AM EDT Routine screening for STI (sexually transmitted infection) from Last 3 Months or Most Recently Relevant to Health Maintenance Results * Hepatitis A,B,C Profile (04/29/2024 8:55 AM EDT) Hepatitis A IgM Nonreactive Nonreactive [facility] Comment:IgM antibodies to URIBE V not detected; does not exclude earlyacute or recovered HAV infection. ~Hepatitis B Surface Antibody GRAYZONE Nonreactive [facility] Comment:GRAYZONE: 8.00 mIU/m L TO 11.99 mIU/mLTHE IMMUNE STATUS OF THE INDIVIDUAL SHOULD BE FURTHERASSESSED BY CONSIDERING OTHER FACTORS, SUCH CLINICALSTATUS, FOLLOW-UP TESTING, ASSOCIATED RISK FACTORS, AND THEUSE OF ADDITIONAL DIAGNOSTIC INFORMATION. Hepatitis B Core Antibody Nonreactive Nonreactive [facility] Hepatitis C Antibody Nonreactive Nonreactive [facility] Comment:Antibodies to HCV no t detected; does not exclude early acuteHCV infection. Hepatitis B Surface Ag Negative Negative [facility] Blood Venous blood specimen / Unknown 04/29/2024 8:55 AM EDT 04/29/2024 8:55 AM EDT [facility] LAB BLOOD ORDERABLES Final Resul t [facility] [address] [place] [phone] * HIV-1/2 Antigen and Antibodies, Fourth Generation, with Reflexes (04/29/2024 8:55 AM EDT) HIV AB/AG Nonreactive Nonreactive [facility] Comment:HIV-1 p24 Ag and/or HIV-1/HIV-2 Ab not detected.A test result that is nonreactive does not exclude thepossibility of exposure to or infection with HIV-1 and/orHIV-2. Nonreactive results in this assay for individualswith prior exposure to HIV-1 and/or HIV-2 may be due toantigen and antibody levels that are below the limit ofdetection of this assay.The [employer] HIV Ag/Ab Combo assay result andsupplemental assay results should be interpreted inconjunction with the patient's clinical presentation,history and other laboratory results. If the results areinconsistent with clinical evidence, additional testing issuggested to confirm the result. Blood Venous blood specimen / Unknown 04/29/2024 8:55 AM EDT 04/29/2024 8:55 AM EDT us Tyra CHAVEZ LAB BLOOD ORDERABLES Final Resul t [facility] [address] [place] [address] [phone] from Last 3 Months or Most Recently Relevant to Health Maintenance Insurance , [address] [place] [address] Care Teams Buffet Server Relationship Specialty Start Date End Date Tyra Deshpande ANP [address] [place] [address] PCP - General Family Medicine 11/01/21
--- OUTSIDE RECORDS SUMMARY | 2025-05-17 18:05 | XMS_ITS | Encounter Summary ---
Author Organization [employer] [facility] Address [address] [place] [address] [address] [place] [address] [address] Care Team Providers Care Type Copyist Name Role Phone Tyra Deshpande Primary Care Provider [phone] Encounter Details Date Type Department Care Team (Late st Contact Info) Description 07/31/2022 Telephone [facility] [address] [place] [phone] Tyra Deshpande ANP [address] [place] [phone] Social History Tobacco Use Types Packs/Day Years Used Date Smoking Tobacco: Never Assessed Sex and Gender Information Value Date Recorded Sex Assigned at Male 05/14/2022 10:40 AM EDT Legal Sex Male 10:40 AM EDT Gender Identity Male 05/14/2022 10:40 AM EDT Sexual Orientation Straight 05/14/2022 10 :40 AM EDT documented as of this encounter Plan of Treatment Upcoming Encounters Date Type Department Care Team (Late st Contact Info) Description 06/04/2025 2:30 PM EST Office Visit [facility] [address] [place] [phone] Tyra Deshpande ANP [address] [place] [phone] documented as of this encounter Visit Diagnoses Not on filedocumented in this encounter Care Teams Type Copyist Relationship Specialty Start Date End Date Tyra Deshpande ANP [address] [place] [phone] PCP - General Family Medicine 11/01/21 documented as of this encounter
[2025-05-17 20:58] VITALS: BP 127/80; PULSE 84; RESP 16; O2SAT 95
[2025-05-17] MEDS: Diphth,Pertus(ACell),Tet Adult 0.5 ML SYRINGE IM (21:23)
[2025-05-17 21:26] VITALS: BP 127/80; PULSE 84; RESP 16; TEMP 36.6; O2SAT 95
== END 2025-05-17 21:33 | disposition home or self-care (01) ==
PROVIDERS: Emergency Provider Emergency Medicine; PCP Nurse Practitioner Primary Care
DX: S00.33XA Contusion of nose, initial encounter (principal); W20.8XXA Other cause of strike by thrown, projected or falling object, initial encounter; Y99.0 Civilian activity done for income or pay; Y92.69 Other specified industrial and construction area as the place of occurrence of the external cause
CPT/HCPCS: 70450; 70486; 72125; 90471; 90715; 99284

== ENCOUNTER → 2025-05-17 16:12 | Outpatient (BNV) | payer OTHER, SELFPAY | PROVIDERS: PCP Nurse Practitioner Primary Care; Visit Provider Student in an Organized Health Care Education/Training Program | DX: M54.2 Cervicalgia (principal); R68.84 Jaw pain; R51.9 Headache, unspecified | CPT/HCPCS: 70450; 70486; 72125 ==

== ENCOUNTER → 2025-05-19 13:36 | Outpatient (BNVA) | payer OTHER, SELFPAY | PROVIDERS: PCP Nurse Practitioner Primary Care; Visit Provider Physician Assistant | DX: Z09 Encounter for follow-up examination after completed treatment for conditions other than malignant neoplasm (principal); S01.21XA Laceration without foreign body of nose, initial encounter; W20.8XXA Other cause of strike by thrown, projected or falling object, initial encounter | CPT/HCPCS: 99204 ==

== ENCOUNTER → 2025-05-21 14:15 | Outpatient (BNVA) | payer OTHER, SELFPAY | PROVIDERS: Visit Provider Physician Assistant | DX: S01.21XA Laceration without foreign body of nose, initial encounter (principal); W20.8XXA Other cause of strike by thrown, projected or falling object, initial encounter; J34.0 Abscess, furuncle and carbuncle of nose | CPT/HCPCS: 99213 ==

== ENCOUNTER → 2025-06-04 15:47 | Outpatient (BNVA) | payer OTHER, SELFPAY | PROVIDERS: Visit Provider Physician Assistant | DX: S01.21XA Laceration without foreign body of nose, initial encounter (principal); W20.8XXA Other cause of strike by thrown, projected or falling object, initial encounter; Z02.79 Encounter for issue of other medical certificate | CPT/HCPCS: 99213 ==